=== PATIENT | female | born 1940 | race Two or more races ===

== ENCOUNTER 2024-09-17 10:56 | Inpatient (IN) | payer MEDICARE ==
[~2024-09-17] VITALS: Ht 154.9 cm; Wt 70.3 kg
--- NOTE | 2024-09-17 11:01 | ED.PDOC ---
SOB-HPI HPI Comments This is a 84 year old female BIBA presenting to the ED with chief complaint of SOB. Patient reports that she has been experiencing SOB since this morning along with having some jitters. Patient relays that she has nausea, vomiting, and diarrhea 2 days ago, but it has since resolved. EMS states patient is 100% on 2L of O2 via NC. Patient denies any chest pain, cough, dizziness, nausea, vomiting, diarrhea, headache, fever, or chills. Time Seen by MD: 10:57 Reviewed notes: Nurses Notes, Style Advisor Notes, Medications, Allergies Information Source: Patient, Emergency Med Personnel Mode of Arrival: EMS Severity: Moderate Timing: Hours Duration: Since onset Context: At Rest PE Risk Factors: None History of: None Prehospital treatment: Oxygen Associated Signs and Symptoms: None Past Medical History PAST MEDICAL HISTORY: HTN Surgical History: Denies all surgeries AIRPORT MANAGER History: Denies all AIRPORT MANAGER Hx Family History Family History: Reviewed,noncontributory to illness Social History Smoker: Non-Smoker Alcohol: Denies ETOH Use Drugs: Denies Drug Use Lives In: Home Constitutional: denies: chills, diaphoresis, fatigue, fever, malaise, sweats, weakness, others EENTM: denies: blurred vision, double vision, ear bleeding, ear discharge, ear drainage, ear pain, ear ringing, eye pain, eye redness, hearing loss, mouth pain, mouth swelling, nasal discharge, nose bleeding, nose congestion, nose pain, photophobia, tearing, throat pain, throat swelling, voice changes, others Respiratory: reports: shortness of breath; denies: cough, hemoptysis, orthopnea, SOB at rest, SOB with excertion, stridor, wheezing, others Cardiovascular: denies: chest pain, dizzy spells, diaphoresis, Dyspnea on exertion, edema, irregular heart beat, left arm pain, lightheadedness, palpitations, PND, syncope, others Gastrointestinal: reports: diarrhea, nausea, vomiting; denies: abdomen distended, abdominal pain, blood streaked bowels, constipated, dysphagia, difficulty swallowing, hematemesis, melena, poor appetite, poor fluid intake, rectal bleeding, rectal pain, others Genitourinary: denies: abnormal vagina bleeding, burning, dyspareunia, dysuria, flank pain, frequency, hematuria, incontinence, pain, , vagina discharge, urgency, others Neurological: denies: dizziness, fainting, headache, left sided numbness, left sided weakness, numbness, paresthesia, pre-existing deficit, right sided numbness, right sided weakness, seizure, speech problems, tingling, tremors, weakness, others Musculoskeletal: denies: back pain, gout, joint pain, joint swelling, muscle pain, muscle stiffness, neck pain, others Integumetry: denies: bruises, change in color, change in hair/nails, dryness, laceration, lesions, lumps, rash, wounds, others Allergic/Immunocompromised: denies: Difficulty Healing, Frequent Infections, Hives, Itching, others Hematologic/Lymphatic: denies: anemia, blood clots, easy bleeding, easy bruising, swollen glands, others Endocrine: denies: excessive hunger, excessive sweating, excessive thirst, excessive urination, flushing, intolerance to cold, intolerance to heat, unexplained weight gain, unexplained weight loss, others Psychiatric: denies: anxiety, bipolar disorder, depression, hopeless, panic disorder, schizophrenia, sleepless, suicidal, others All Other Systems: Reviewed and Negative Physical Exam General Appearance: Moderate Distress, Normal HEENT: Normal ENT Inspection, Pharynx Normal, TMs Normal Neck: Full Range of Motion, Non-Tender, Normal, Normal Inspection Respiratory: Chest Non-Tender, No Accessory Muscle Use, Other (Coarse breath sounds) Cardiovascular: No Edema, No JVD, No Murmur, No Gallop, Normal Peripheral Pulses, Regular Rate/Rhythm Breast Exam: Deferred Gastrointestinal: No Organomegaly, Non Tender, No Pulsatile Mass, Normal Bowel Sounds, Soft Genitalia: Deferred Pelvic: Deferred Rectal: Deferred Extremities: No calf tenderness, Normal capillary refill, Normal inspection, Normal range of motion, Non-tender, No pedal edema Musculoskeletal : Apperance: Normal Neurologic: Alert, fretted instrument repairer II-XII nml as Tested, No Motor Deficits, Normal Affect, Normal Mood, No Sensory Deficits Cerebellar Function: NOT DONE Reflexes: NOT DONE Skin: Dry, Normal Color, Warm Peripheral Pulses: 3+ Radial (R), 3+ Radial (L) Lymphatic: No Adenopathy EKG EKG : Pulse Rate (adult): 87 [place]: Normal Cardiac Rhythm: NSR Block: None Hypertrophy: None ST: Normal Was a procedure done? Was a procedure done?: No Differential Dx Differential Diagnosis: Anxiety, Asthma, Bronchitis, CHF, COPD, Pneumonia, Pulmonary Embolism, Respiratory Distress X-Ray, Labs, Meds, VS Vital Signs Date Time Temp Pulse Resp B/P (MAP) Pulse Ox O2 Delivery O2 Flow Rate FiO2 09/17/24 12:00 97.1 82 18 155/61 (92) 96 97.1 09/17/24 12:00 82 18 96 Room Air* 0 21 09/17/24 11:10 87 09/17/24 11:05 98.5 93 18 192/102 (132) 100 98.5 09/17/24 10:59 87 Lab Test 09/17/24 11:46 09/17/24 11:03 Range/Units Urine Color Light-yellow Yellow Urine Clarity Clear Clear Urine pH 7.5 5.0-9.0 Urine Specific [place] 1.012 1.001-1.035 Urine Protein Negative Negative Urine Ketones Negative Negative Urine Blood Negative Negative /uL Urine Nitrite Negative Negative Urine Bilirubin Negative Negative Urine Urobilinogen Normal Negative mg/dL Urine Leukocyte Esterase 2+ Negative /uL Urine RBC 3 0 - 4 /hpf Urine Microscopic WBC 17 H 0-5 /HPF Urine Squamous Epithelial Cells Few <5 /hpf Urine Bacteria None seen None Seen /hpf Urine Glucose Normal Normal mg/dL White Blood Count 7.2 4.4-10.8 10^3/uL Red Blood Count 5.12 4.0-5.20 10^6/uL Hemoglobin 15.9 12.2-16.2 g/dL Hematocrit 46.5 H 36.0-46.0 % Mean Corpuscular Volume 90.8 80.0-100.0 fL Mean Corpuscular Hemoglobin 31.0 28.0-32.0 pg Mean Corpuscular Hemoglobin Concent 34.1 32.0-36.0 g/dL Red Cell Distribution Width 13.3 11.8-14.3 % Platelet Count 203 140-450 10^3/uL Mean Platelet Volume 9.6 6.9-10.8 fL Neutrophils (%) (Auto) 60.7 37.0-80.0 % Lymphocytes (%) (Auto) 27.8 10.0-50.0 % Monocytes (%) (Auto) 8.6 0.0-12.0 % Eosinophils (%) (Auto) 2.0 0.0-7.0 % Basophils (%) (Auto) 0.9 0.0-2.0 % Neutrophils # (Auto) 4.4 1.6-8.6 10 ^3/uL Lymphocytes # (Auto) 2.0 0.4-5.4 10 ^3/uL Monocytes # (Auto) 0.6 0-1.3 10 ^3/uL Eosinophils # (Auto) 0.1 0-0.8 10 ^3/uL Basophils # (Auto) 0.1 0-0.2 10 ^3/uL Nucleated Red Blood Cells 0.2 % Sodium Level 138 136-145 mmol/L Potassium Level 4.2 3.5-5.1 mmol/L Chloride Level 103 98-107 mmol/L Carbon Dioxide Level 24 20-31 mmol/L Anion Gap 11 5-15 Blood Urea Nitrogen 19 9-23 mg/dL Creatinine 1.01 0.550-1.02 mg/dL Glomerular Filtration Rate Calc 55 >90 mL/min BUN/Creatinine Ratio 18.8 10.0-20.0 Serum Glucose 120 H 74-106 mg/dL Calcium Level 10.5 H 8.7-10.4 mg/dL Troponin I High Sensitivity 5 </=34 ng/L Patient alert. Complaining of shortness a breath. Vitals stable. Answering all questions. Urinalysis shows UTI. Establish intravenous access. Was given Rocephin. Was given azithromycin. Blood pressure elevated. Reviewed her history. Explained to the patient. Continue to monitoring. Time of 1ST Reevaluation: 11:57 Reevaluation 1ST: Unchanged Patient Education/Counseling: Diagnosis, Treatment Family Education/Counseling: No Family Present Additional Information Previous visits reviewed: None The following tests were ordered, and results were reviewed by me: Additional Information was gathered from interviewing the following independent historians: I reviewed and agreed with the following test results read by other providers: I discussed treatment and results with medical personnel and: patient Comprehensive systems review obtained and negative except for what is stated in the HPI. SEPSIS Sepsis Screen Physician Orders Chest Portable (09/17/24 11:16) Electrocardigram (09/17/24 11:29) Vital Signs Date Time Temp Pulse Resp B/P (MAP) Pulse Ox O2 Delivery O2 Flow Rate FiO2 09/17/24 12:00 97.1 82 18 155/61 (92) 96 97.1 09/17/24 12:00 82 18 96 Room Air* 0 21 09/17/24 11:10 87 09/17/24 11:05 98.5 93 18 192/102 (132) 100 98.5 09/17/24 10:59 87 Laboratory Tests Test 09/17/24 11:03 White Blood Count 7.2 10^3/uL (4.4-10.8) Departure 1 Departure Time of Disposition: 14:45 Impression: Primary Impression: Acute respiratory distress Additional Impression: Pneumonitis Disposition: ADMITTED INPATIENT Admit to: Med Surg Condition: Guarded Critical Care Note Critical Care Time?: Yes (90 min-critical care time only) Critical care comment: Monitoring oxygenation Stability Stability form required: No Heart Score Heart Score: Heart Score Response (Comments) Value History Slightly Suspicious 0 EKG Normal 0 Age >65 2 Risk Factors >3 or Hx ASHD 2 Troponin Normal limit 0 Total 4 I personally scribed for KARISSA JHAVERI MD ([email or web address]) on 09/17/24 at 11:01. Electronically submitted by Cordell Velasquez ([email or web address]). I personally scribed for KARISSA JHAVERI MD ([email or web address]) on 09/17/24 at 11:10. Electronically submitted by Cordell Velasquez ([email or web address]). KARISSA JHAVERI MD Sep 17, 2024 11:01
--- NOTE | 2024-09-17 11:39 | DVH ---
CHEST RADIOGRAPH Indication: sob Technique: Single frontal view of the chest was obtained COMPARISON: None FINDINGS: Lines and Tubes: Left chest pacemaker Lungs: Clear Pleura: No effusion. No pneumothorax. Cardiomediastinal contours: Unremarkable Bones: Unremarkable IMPRESSION: No acute disease.
[2024-09-17 11:55] LABS: Hematocrit 46.5 % (36.0-46.0); Hemoglobin 15.9 g/dL (12.2-16.2); Mean Corpuscular Hemoglobin 31.0 pg (28.0-32.0); Mean Corpuscular Volume 90.8 fL (80.0-100.0); Nucleated Red Blood Cells % 0.2 %
[2024-09-17 12:00] VITALS: PULSE 82; RESP 18; O2SAT 96
[2024-09-17 12:02] LABS: Anion Gap 11 (5-15); Carbon Dioxide 24 mmol/L (20-31); Chloride 103 mmol/L (98-107); Potassium 4.2 mmol/L (3.5-5.1); Sodium 138 mmol/L (136-145)
[2024-09-17 12:06] LABS: Calcium 10.5 mg/dL (8.7-10.4)
[2024-09-17 12:08] LABS: BUN/Creatinine Ratio 18.8 (10.0-20.0); Blood Urea Nitrogen 19 mg/dL (9-23)
[2024-09-17 12:09] LABS: Glucose 120 mg/dL (74-106)
[2024-09-17 14:05] LABS: Urine Protein, UAD Negative (Negative)
[2024-09-17] MEDS ORDERED: ACETAMINOPHEN 325 MG TAB PO PRN (16:45)
[2024-09-17] MEDS ORDERED: MORPHINE SULFATE INJ 2 MG/ml SYRG IV PRN (16:45)
[2024-09-17] MEDS ORDERED: ONDANSETRON HCL 4 MG/2 ML VIAL IV PRN (16:45)
[2024-09-17] MEDS ORDERED: NITROGLYCERIN 0.4 MG SL TAB SL PRN (16:45)
[2024-09-17 18:25] LABS: INR 0.99 (0.9-1.15); Partial Thromboplastin Time 25.6 SEC (24.5-34.5); Prothrombin Time 10.5 sec (9.3-11.8)
[2024-09-17 18:26] LABS: Alanine Aminotransferase 13.0 U/L (7-40); Albumin 4.6 g/dL (3.2-4.8); Alkaline Phosphatase 78.0 U/L (46-116); Bilirubin, Direct 0.1 mg/dL (<0.3); Bilirubin, Total 0.6 mg/dL (0.2-1.0); Magnesium 2.3 mg/dL (1.6-2.6); Total Protein 7.4 g/dL (5.7-8.2)
--- NOTE | 2024-09-17 18:29 | DVHHPRES ---
History of Present Illness Resident Creating Document: WANDY CORONADO RESIDENT History of Present Illness Janey Avalos is 83 years old female with a PMH of HTN presented to the ED with the chief complaints of shortness of breath since yesterday. Patient reported she has been having on and off shortness of breath since ebary patient also reported she has been having some difficulty with memory since March. Yesterday she was taking rest then she mild felt shortness of breath which last for some time and again came back which prompt her to visit ED. Patient reported no aggravating/relieving factors and also reported no associated fever, chills, flu-like symptoms, chest pain, nausea, vomiting, recent travel, sick contacts and other associated symptoms. Patient is poor historian, unable to obtain complete history, called next of kin but no response, we will call tomorrow again. Patient also reported she has been having lower abdominal pain lately and burning micturation some times. PMH: HTN, Forgetfullness PSH; Unspecified Abdominal surgery Family Hx: Non contributory Social Hx: Lives at home. Former smoker, Denies alcohol and other illicit drug abuse Allergies: None Home meds : Unable to recall Review of Systems Review of Systems Patient seen and examined at the bedside. Patient reported improvement in her symptoms, reported no shortness of breath at this time. Rest of ROS negative Allergies: Coded Allergies: NO KNOWN ALLERGIES (Unverified , 09/17/24) Medications Current Medications Medications Dose Ordered Sig/Joby Route Start Time Stop Time Status Last Admin Dose Admin Sodium Chloride 10 ml Q8HR IV 09/17/24 22:00 UNV Ondansetron HCl 4 mg Q4HP PRN IV 09/17/24 16:45 UNV Acetaminophen 650 mg Q6HP PRN PO 09/17/24 16:45 UNV Nitroglycerin 0.4 mg Q5MINP PRN SL 09/17/24 16:45 UNV Morphine Sulfate 2 mg Q30M PRN IV 09/17/24 16:45 UNV Hydralazine HCl 10 mg Q6HP PRN IV 09/17/24 17:15 UNV Ceftriaxone Sodium 50 ml @ 100 mls/hr DAILY@09 IV 09/18/24 09:00 UNV Exam Vital Signs Vital Signs Date Time Temp Pulse Resp B/P (MAP) Pulse Ox O2 Delivery O2 Flow Rate FiO2 7/25/25 16:00 86 17 151/75 (100) 96 09/17/24 12:00 97.1 97.1 09/17/24 12:00 Room Air* 0 21 Exam Pt is lying on bed General Appearance: Alert, Oriented X3, Cooperative, Not in acute distress HEENT: Atraumatic, Mucous membranes moist/pink Respiratory: Clear to auscultation, Normal air movement, No added sounds Cardiovascular: Regular rate, Normal S1, Normal S2, No murmurs Abdominal: Active bowel sounds, Soft, no distention, LLQ & RLQ tenderness Extremities: No edema, Normal pulses, No tenderness/swelling Skin: No Significant rash, except past surgical scars Neuro: Normal speech, sensorimotor deficits none Psych/Mental Status: Mental status NL, Mood NL Nurse was there as compensation specialist during examination Labs/Xrays Labs Test 09/17/24 17:31 09/17/24 11:46 09/17/24 11:05 09/17/24 11:03 Range/Units Urine Color Light-yellow Yellow Urine Clarity Clear Clear Urine pH 7.5 5.0-9.0 Urine Specific [place] 1.012 1.001-1.035 Urine Protein Negative Negative Urine Ketones Negative Negative Urine Blood Negative Negative /uL Urine Nitrite Negative Negative Urine Bilirubin Negative Negative Urine Urobilinogen Normal Negative mg/dL Urine Leukocyte Esterase 2+ Negative /uL Urine RBC 3 0 - 4 /hpf Urine Microscopic WBC 17 H 0-5 /HPF Urine Squamous Epithelial Cells Few <5 /hpf Urine Bacteria None seen None Seen /hpf Urine Glucose Normal Normal mg/dL Hemoglobin A1c 5.7 <5.7 % A1C White Blood Count 7.2 4.4-10.8 10^3/uL Red Blood Count 5.12 4.0-5.20 10^6/uL Hemoglobin 15.9 12.2-16.2 g/dL Hematocrit 46.5 H 36.0-46.0 % Mean Corpuscular Volume 90.8 80.0-100.0 fL Mean Corpuscular Hemoglobin 31.0 28.0-32.0 pg Mean Corpuscular Hemoglobin Concent 34.1 32.0-36.0 g/dL Red Cell Distribution Width 13.3 11.8-14.3 % Platelet Count 203 140-450 10^3/uL Mean Platelet Volume 9.6 6.9-10.8 fL Neutrophils (%) (Auto) 60.7 37.0-80.0 % Lymphocytes (%) (Auto) 27.8 10.0-50.0 % Monocytes (%) (Auto) 8.6 0.0-12.0 % Eosinophils (%) (Auto) 2.0 0.0-7.0 % Basophils (%) (Auto) 0.9 0.0-2.0 % Neutrophils # (Auto) 4.4 1.6-8.6 10 ^3/uL Lymphocytes # (Auto) 2.0 0.4-5.4 10 ^3/uL Monocytes # (Auto) 0.6 0-1.3 10 ^3/uL Eosinophils # (Auto) 0.1 0-0.8 10 ^3/uL Basophils # (Auto) 0.1 0-0.2 10 ^3/uL Nucleated Red Blood Cells 0.2 % Sodium Level 138 136-145 mmol/L Potassium Level 4.2 3.5-5.1 mmol/L Chloride Level 103 98-107 mmol/L Carbon Dioxide Level 24 20-31 mmol/L Anion Gap 11 5-15 Blood Urea Nitrogen 19 9-23 mg/dL Creatinine 1.01 0.550-1.02 mg/dL Glomerular Filtration Rate Calc 55 >90 mL/min BUN/Creatinine Ratio 18.8 10.0-20.0 Serum Glucose 120 H 74-106 mg/dL Calcium Level 10.5 H 8.7-10.4 mg/dL Troponin I High Sensitivity 5 </=34 ng/L SEPSIS Sepsis Screen Date sepsis recognized/suspect: Sep 10, 2024 Time Sepsis recognized/suspect: 1104 Recent Procedure: No On Antibiotic Therapy: No Respiratory Rate >20: No Heart Rate >90: No Temp<36 C (96.8 F) or >38.3 C: No SBP <90 or MAP <65 mmHG: No New Acute Mental Status Change: No Is the patient on CPAP, BIPAP,: No Physician Orders Chest Portable (09/17/24 11:16) Electrocardigram (09/17/24 11:29) Admit (09/17/24 16:45) Allergies (09/17/24 16:45) Code Status (09/17/24 16:45) Sodium Chloride Lock (Saline Lock Ns) (09/17/24 22:00) Ondansetron Hcl (Zofran) (09/17/24 16:45) Complete Blood Count (09/18/24 04:00) Comprehensive Metabolic Panel (09/18/24 04:00) Cardiac Diet-2gna,Lofat,Lochol (09/17/24 Dinner) Condition: Stable (09/17/24 16:45) Acetaminophen Tablet (Tylenol Tablet) (09/17/24 16:45) Nitroglycerin Sublingual (Ntrostat Subli (09/17/24 16:45) Morphine Sulfate Injection (09/17/24 16:45) Oxygen By Nasal Cannula (09/17/24 16:45) Stat Ekg For Chest Pain (09/17/24 16:45) Notify Md Of Changes From Base (09/17/24 16:45) Head Mva Reactor Operator For 24 Hours (09/17/24 16:45) Emergency Dysrhythmia Protocol (09/17/24 16:45) Rhythm Strips Once Every Shift (09/17/24 16:45) Echo 2d Mode Cardiac Dop (09/17/24 16:52) Urinalysis (09/17/24 16:52) Rapid Influenza A&B (09/17/24 16:52) Hepatic Panel (09/17/24 16:52) Lactic Acid W/ Reflex Order (09/17/24 16:52) Magnesium (09/17/24 16:52) PTPTT (09/17/24 16:52) Covid19 Antigen Sarai (09/17/24 16:52) Urine Bacterial Culture (09/17/24 16:52) Hydralazine Injection (Apresoline Inject (09/17/24 17:15) Thyroid Stimulating Hormone (09/17/24 17:04) Vitamin B12 (09/17/24 17:04) Vitamin D, 25-Hydroxy (09/17/24 17:04) D-Dimer (09/17/24 17:04) Ceftriaxone 1gm/50ml D5w (Rocephin) (09/18/24 09:00) Ceftriaxone 1gm/50ml D5w (Rocephin) (09/17/24 17:15) Vital Signs Date Time Temp Pulse Resp B/P (MAP) Pulse Ox O2 Delivery O2 Flow Rate FiO2 09/17/24 16:00 86 17 151/75 (100) 96 09/17/24 14:00 82 34 196/97 (130) 96 09/17/24 12:00 97.1 82 18 155/61 (92) 96 97.1 09/17/24 12:00 82 18 96 Room Air* 0 21 09/17/24 11:10 87 09/17/24 11:05 98.5 93 18 192/102 (132) 100 98.5 09/17/24 10:59 87 Laboratory Tests Test 09/17/24 11:03 09/17/24 17:31 White Blood Count 7.2 10^3/uL (4.4-10.8) Lactic Acid Level Pending Assessment/Plan Assessment/Plan # SOB rule out flu/COVID # HTN Urgency - Medsurge - Monitor BP - Hydralazine 10 mg prn - measure BNP -ordered rapid flu/COVID test -echocardiogram, pending - Cxr unremarkable # Acute complicated UTI/ cystitis - evident on urinalysis - ordered urine bacterial culture - currently giving Rocephin GI PPX: Not indicated VTE ppx: Lovenox Diet: Cardiac diet Goals of care addressed with the patient for more than 27 minutes: Full code status Case discussed with Dr. Reed ,patient and nurse Plan discussed with: Patient, Other (RN) My Orders Orders - WANDY CORONADO RESIDENT Procedure Category Date Status Time Admit ADMIT 09/17/24 Transmitted 16:45 Allergies PETRA 09/17/24 In Process 16:45 Code Status CODE 09/17/24 Transmitted 16:45 Sodium Chloride Lock PHA 09/17/24 Logged (Saline Lock Ns) 22:00 Ondansetron Hcl PHA 09/17/24 Logged (Zofran) 16:45 Complete Blood Count LAB 09/18/24 Verified 04:00 Comprehensive LAB 09/18/24 Verified Metabolic Panel 04:00 Cardiac DIET 09/17/24 Transmitted Diet-2gna,Lofat,Lochol Dinner Condition: Stable PETRA 09/17/24 In Process 16:45 Acetaminophen Tablet PHA 09/17/24 Logged (Tylenol Tablet) 16:45 Nitroglycerin PHA 09/17/24 Logged Sublingual (Ntrostat 16:45 Morphine Sulfate PHA 09/17/24 Logged Injection 16:45 Oxygen By Nasal RT 09/17/24 Transmitted Cannula 16:45 Stat Ekg For Chest PETRA 09/17/24 In Process Pain 16:45 Notify Md Of Changes PETRA 09/17/24 In Process From Base 16:45 Head Mva Reactor Operator For [facility] 09/17/24 In Process 24 Hours 16:45 Emergency Dysrhythmia PETRA 09/17/24 In Process Protocol 16:45 Rhythm Strips Once PETRA 09/17/24 In Process Every Shift 16:45 Echo 2d Mode Cardiac US 09/17/24 Logged DOP 16:52 Urinalysis LAB 09/17/24 Logged 16:52 Rapid Influenza A&B LAB 09/17/24 Logged 16:52 Hepatic Panel LAB 09/17/24 In Process 16:52 Lactic Acid W/ Reflex LAB 09/17/24 In Process Order 16:52 Magnesium LAB 09/17/24 In Process 16:52 PTPTT LAB 09/17/24 In Process 16:52 Covid19 Antigen Sarai LAB 09/17/24 Logged 16:52 Urine Bacterial DEONNA 09/17/24 Logged Culture 16:52 Hydralazine Injection PHA 09/17/24 Logged (Apresoline Inject 17:15 Thyroid Stimulating LAB 09/17/24 In Process Hormone 17:04 Vitamin B12 LAB 09/17/24 In Process 17:04 Vitamin D, 25-Hydroxy LAB 09/17/24 In Process 17:04 D-Dimer LAB 09/17/24 In Process 17:04 Ceftriaxone 1gm/50ml PHA 09/18/24 Logged D5w (Rocephin) 09:00 Ceftriaxone 1gm/50ml PHA 09/17/24 Logged D5w (Rocephin) 17:15 Date of Service: Sep 17, 2024 Billing Provider: BERNY REED MD Common Visit Codes: [id number] INP/OBS CARE (LOW) Secondary Visit Codes: [id number] CARE PLAN ADDL 30MIN WANDY CORONADO RESIDENT Sep 17, 2024 18:28
[2024-09-17 21:00] VITALS: BP 162/83; PULSE 82; RESP 19; TEMP 97.5; O2SAT 96
[2024-09-17] MEDS: SODIUM CHLOR 0.9% PF (SALINE LOCK) 10ML VIAL/SYR IV SCH (21:32)
[2024-09-17] MEDS: cefTRIAXone 1GM/50ML D5W 50 ML IV ONE (21:32)
[2024-09-17] MEDS: hydrALAZINE HCL 20 MG/ML VL IV PRN (21:37)
[2024-09-18] VITALS (8 sets, daily range): BP systolic 146–163; BP diastolic 56–81; PULSE 84–95; RESP 14–21; TEMP 97.2–98.2; O2SAT 95–98
--- NOTE | 2024-09-18 01:49 | ECG ---
[facility] Test Date: 2024-09-17 Test Time: 10:59:25 Pat Name: ABI ABBOTT Department: ED Room: 0236 Gender: F Regulatory Submissions Specialist: MAVERICK : 1940 Requested By: KARISSA JHAVERI Order Number: [id number] Reading MD: Measurements Intervals [place] Rate: 87 P: 41 MO: 177 QRS: -34 QRSD: 89 T: 11 QT: 350 QTc: 421 Interpretive Statements Sinus rhythm Inferior infarct, old Anteroseptal infarct, old Please click the below link to view image of tracing.
[2024-09-18] MEDS: hydrALAZINE HCL 20 MG/ML VL IV ONE (01:58)
[2024-09-18 07:29] LABS: Hematocrit 43.1 % (36.0-46.0); Hemoglobin 15.1 g/dL (12.2-16.2); Mean Corpuscular Hemoglobin 31.5 pg (28.0-32.0); Mean Corpuscular Volume 89.9 fL (80.0-100.0); Nucleated Red Blood Cells % 0.1 %
[2024-09-18 07:38] LABS: Alanine Aminotransferase 10 U/L (7-40); Alkaline Phosphatase 70 U/L (46-116); Anion Gap 11 (5-15); BUN/Creatinine Ratio 19.0 (10.0-20.0); Blood Urea Nitrogen 19 mg/dL (9-23); Calcium 9.7 mg/dL (8.7-10.4); Carbon Dioxide 23 mmol/L (20-31); Chloride 105 mmol/L (98-107); Potassium 3.6 mmol/L (3.5-5.1); Sodium 139 mmol/L (136-145); Total Protein 6.7 g/dL (5.7-8.2)
[2024-09-18 07:39] LABS: Albumin 4.1 g/dL (3.2-4.8); Bilirubin, Total 0.5 mg/dL (0.2-1.0); Glucose 143 mg/dL (74-106)
[2024-09-18] MEDS: cefTRIAXone 1GM/50ML D5W 50 ML IV SCH (09:02)
[2024-09-18 11:39] LABS: COVID19 ANTIGEN SOFIA FIA NEGATIVE (NEGATIVE)
--- NOTE | 2024-09-18 15:09 | DVHPNRES ---
Progress Note Date Seen: Sep 18, 2024 Resident Creating Document: WANDY CORONADO RESIDENT Medical Necessity Reason Pt with a Central, PICC or Fol: No Subjective Review of Systems Patient seen and examined at the bedside. Patient reported improvement in her symptoms, reported no shortness of breath at this time. Rest of ROS negative Patient reports: No new complaints, Feels better Objective vital signs Vital Sign Date Time Temp Pulse Resp B/P (MAP) Pulse Ox O2 Delivery O2 Flow Rate FiO2 09/18/24 13:00 97.9 90 18 149/56 (87) 97 97.9 09/18/24 07:40 Nasal Cannula* 1 24 Total Intake and Output 09/17/24 09/17/24 09/18/24 15:00 23:00 07:00 Intake Total 170 ml Balance 170 ml medications Current Medications Medications Dose Ordered Sig/Joby Route Start Time Stop Time Status Last Admin Dose Admin Sodium Chloride 10 ml Q8HR IV 09/17/24 22:00 09/18/24 05:55 10 ML Ondansetron HCl 4 mg Q4HP PRN IV 09/17/24 16:45 Acetaminophen 650 mg Q6HP PRN PO 09/17/24 16:45 Nitroglycerin 0.4 mg Q5MINP PRN SL 09/17/24 16:45 Morphine Sulfate 2 mg Q30M PRN IV 09/17/24 16:45 Hydralazine HCl 10 mg Q6HP PRN IV 09/17/24 17:15 09/17/24 21:37 10 MG Ceftriaxone Sodium 50 ml @ 100 mls/hr DAILY@09 IV 09/18/24 09:00 09/18/24 09:02 100 MLS/HR Examination Pt is lying on bed General Appearance: Alert, Oriented X3, Cooperative, Not in acute distress HEENT: Atraumatic, Mucous membranes moist/pink Respiratory: Clear to auscultation, Normal air movement, No added sounds Cardiovascular: Regular rate, Normal S1, Normal S2, No murmurs Abdominal: Active bowel sounds, Soft, no distention, LLQ & RLQ tenderness Extremities: No edema, Normal pulses, No tenderness/swelling Skin: No Significant rash, except past surgical scars Neuro: Normal speech, sensorimotor deficits none Psych/Mental Status: Mental status NL, Mood NL Nurse was there as mba intern during examination laboratory and microbiology Laboratory Tests 09/18/24 06:01 Test 09/18/24 06:01 Range/Units Serum Glucose 143 H 74-106 mg/dL Microbiology Date/Time Source Procedure Growth Status 09/17/24 11:46 Voided Urine Urine Culture - Preliminary Resulted Labs and/or images reviewed: Labs reviewed by me, Image(s) reviewed by me Problem List/Assessment/Plan Problem List/Assessment/Plan # SOB likely from uncontrolled HTN # ruled out flu/COVID # HTN Urgency - Medsurge - Monitor BP - Hydralazine 10 mg prn - measure BNP -ordered rapid flu/COVID test, negative -echocardiogram, pending - Cxr unremarkable -added amlodipine 10 mg and lisinopril 10 mg # Acute complicated UTI/ cystitis - evident on urinalysis - ordered urine bacterial culture - currently giving Rocephin GI PPX: Not indicated VTE ppx: Lovenox Diet: Cardiac diet Goals of care addressed with the patient for more than 27 minutes: Full code status Case discussed with Dr. Gardner ,patient and nurse Plan discussed with: Patient, Other (rn) My Orders My Orders Orders - WANDY CORONADO RESIDENT Procedure Category Date Status Time Admit ADMIT 09/17/24 Transmitted 16:45 Allergies PETRA 09/17/24 In Process 16:45 Code Status CODE 09/17/24 Transmitted 16:45 Sodium Chloride Lock PHA 09/17/24 In Process (Saline Lock Ns) 22:00 Ondansetron Hcl PHA 09/17/24 In Process (Zofran) 16:45 Cardiac DIET 09/17/24 Transmitted Diet-2gna,Lofat,Lochol Dinner Condition: Stable PETRA 09/17/24 In Process 16:45 Acetaminophen Tablet PHA 09/17/24 In Process (Tylenol Tablet) 16:45 Nitroglycerin PHA 09/17/24 In Process Sublingual (Ntrostat 16:45 Morphine Sulfate PHA 09/17/24 In Process Injection 16:45 Oxygen By Nasal RT 09/17/24 Transmitted Cannula 16:45 Stat Ekg For Chest PETRA 09/17/24 In Process Pain 16:45 Notify Md Of Changes PETRA 09/17/24 In Process From Base 16:45 Ramp Boss For [facility] 09/17/24 In Process 24 Hours 16:45 Emergency Dysrhythmia [facility] 09/17/24 In Process Protocol 16:45 Rhythm Strips Once [facility] 09/17/24 In Process Every Shift 16:45 Urine Bacterial DEONNA 09/17/24 In Process Culture 16:52 Hydralazine Injection PHA 09/17/24 In Process (Apresoline Inject 17:15 Vitamin B12 LAB 09/17/24 In Process 17:04 Ceftriaxone 1gm/50ml PHA 09/18/24 In Process D5w (Rocephin) 09:00 Date of Service: Sep 18, 2024 Billing Provider: YUKI GARDNER MD Common Visit Codes: [id number] INP/OBS CARE(HIGH) WANDY CORONADO RESIDENT Sep 18, 2024 15:09 YUKI GARDNER MD Sep 19, 2024 07:30
[2024-09-19 01:00] VITALS: BP 144/77; PULSE 86; RESP 14; TEMP 98.9; O2SAT 96
[2024-09-19 05:00] VITALS: BP 126/67; PULSE 78; RESP 18; TEMP 97.4; O2SAT 97
[2024-09-19 08:00] VITALS: PULSE 75; RESP 16; O2SAT 97
[2024-09-19 08:39] VITALS: BP 142/69; PULSE 75; RESP 16; TEMP 97.8; O2SAT 97
[2024-09-19] MEDS: LISINOPRIL 5 MG TAB PO SCH (09:07)
[2024-09-19 11:07] VITALS: BP 142/69; PULSE 75; RESP 16; TEMP 97.8; O2SAT 97
[2024-09-19] MEDS ORDERED: CEPH250C PO (11:18)
--- NOTE | 2024-09-19 14:04 | DVHDSRES ---
Discharge Summary Date of Admission Resident Creating Document: EMMANUEL JESUS RESIDENT Sep 17, 2024 at 16:45 Date of Discharge: Sep 19, 2024 Admitting Diagnosis SOB likely from uncontrolled HTN Labs/Diagnostic Data: Laboratory Results Test 09/18/24 11:00 09/18/24 06:01 09/18/24 03:48 09/17/24 17:31 Influenza Type A Antigen Negative (Negative) Influenza Type B Antigen Negative (Negative) SARS-CoV-2 Antigen (Rapid) Negative (NEGATIVE) White Blood Count 8.8 10^3/uL (4.4-10.8) Red Blood Count 4.79 10^6/uL (4.0-5.20) Hemoglobin 15.1 g/dL (12.2-16.2) Hematocrit 43.1 % (36.0-46.0) Mean Corpuscular Volume 89.9 fL (80.0-100.0) Mean Corpuscular Hemoglobin 31.5 pg (28.0-32.0) Mean Corpuscular Hemoglobin Concent 35.0 g/dL (32.0-36.0) Red Cell Distribution Width 13.5 % (11.8-14.3) Platelet Count 205 10^3/uL (140-450) Mean Platelet Volume 9.7 fL (6.9-10.8) Neutrophils (%) (Auto) 79.2 % (37.0-80.0) Lymphocytes (%) (Auto) 11.7 % (10.0-50.0) Monocytes (%) (Auto) 8.0 % (0.0-12.0) Eosinophils (%) (Auto) 0.5 % (0.0-7.0) Basophils (%) (Auto) 0.6 % (0.0-2.0) Neutrophils # (Auto) 6.9 10 ^3/uL (1.6-8.6) Lymphocytes # (Auto) 1.0 10 ^3/uL (0.4-5.4) Monocytes # (Auto) 0.7 10 ^3/uL (0-1.3) Eosinophils # (Auto) 0 10 ^3/uL (0-0.8) Basophils # (Auto) 0 10 ^3/uL (0-0.2) Nucleated Red Blood Cells 0.1 % Sodium Level 139 mmol/L (136-145) Potassium Level 3.6 mmol/L (3.5-5.1) Chloride Level 105 mmol/L (98-107) Carbon Dioxide Level 23 mmol/L (20-31) Anion Gap 11 (5-15) Blood Urea Nitrogen 19 mg/dL (9-23) Creatinine 1.00 mg/dL (0.550-1.02) Glomerular Filtration Rate Calc 55 mL/min (>90) BUN/Creatinine Ratio 19.0 (10.0-20.0) Serum Glucose 143 mg/dL (74-106) Calcium Level 9.7 mg/dL (8.7-10.4) Total Bilirubin 0.5 mg/dL (0.2-1.0) Aspartate Amino Transferase (AST) 18 U/L (13-40) Alanine Aminotransferase (ALT) 10 U/L (7-40) Alkaline Phosphatase 70 U/L (46-116) B-Type Natriuretic Peptide 29.72 pg/mL (0-100) Total Protein 6.7 g/dL (5.7-8.2) Albumin 4.1 g/dL (3.2-4.8) POC Glucose 163 mg/dl (70-106) Prothrombin Time 10.5 sec (9.3-11.8) Prothrombin Time INR 0.99 (0.9-1.15) Activated Partial Thromboplast Time 25.6 SEC (24.5-34.5) D-Dimer, Quantitative 1.93 mg/L FEU (0.0-0.49) Lactic Acid Level 1.2 mmol/L (0.4-2.0) Magnesium Level 2.3 mg/dL (1.6-2.6) Direct Bilirubin 0.1 mg/dL (<0.3) Vitamin D 25-Hydroxy 53.0 ng/mL (30.0-100) Thyroid Stimulating Hormone (TSH) 2.37 uIU/mL (0.55-4.78) Test 09/17/24 11:46 09/17/24 11:05 09/17/24 11:03 Urine Color Light-yellow (Yellow) Urine Clarity Clear (Clear) Urine pH 7.5 (5.0-9.0) Urine Specific [place] 1.012 (1.001-1.035) Urine Protein Negative (Negative) Urine Ketones Negative (Negative) Urine Blood Negative /uL (Negative) Urine Nitrite Negative (Negative) Urine Bilirubin Negative (Negative) Urine Urobilinogen Normal mg/dL (Negative) Urine Leukocyte Esterase 2+ /uL (Negative) Urine RBC 3 /hpf (0 - 4) Urine Microscopic WBC 17 /HPF (0-5) Urine Squamous Epithelial Cells Few /hpf (<5) Urine Bacteria None seen /hpf (None Seen) Urine Glucose Normal mg/dL (Normal) Hemoglobin A1c 5.7 % A1C (<5.7) Troponin I High Sensitivity 5 ng/L (</=34) Other Laboratory Tests 09/18/24 06:01 Brief Hx & Hospital Course: Janey Avalos is 83 years old female with a PMH of HTN presented to the ED with the chief complaints of shortness of breath since yesterday. Patient reported she has been having on and off shortness of breath since March patient also reported she has been having some difficulty with memory since March. Yesterday she was taking rest then she mild felt shortness of breath which last for some time and again came back which prompt her to visit ED. Patient reported no aggravating/relieving factors and also reported no associated fever, chills, flu-like symptoms, chest pain, nausea, vomiting, recent travel, sick contacts and other associated symptoms. Patient is poor historian, unable to obtain complete history, called next of kin but no response, we will call tomorrow again. Patient also reported she has been having lower abdominal pain lately and burning micturation some times. Brief history of Hospitalization: Patient came in with shortness of breaths most likely due to uncontrolled hypertension. We ruled out COVID And flu. She had hypertensive urgency and was [facility]. We monitored her BP and give her hydralazine 10 mg PRN. her BNP was normal and an echocardiogram was done. We added amlodipine 10 mg and lisinopril 10 mg. Chest x-ray was unremarkable. For patient's acute complicated UTI / cystitis which was evident on her urinalysis we ordered a urine bacterial culture and started her on Rocephin. Patient is now stable for discharge. We have counseled her regarding low-salt diet and to monitor blood pressure at home as well. We have counseled alert continue home medications and are discharging her on Cephalexin 500 mg for 7 days. Pt is lying on bed General Appearance: Alert, Oriented X3, Cooperative, Not in acute distress HEENT: Atraumatic, Mucous membranes moist/pink Respiratory: Clear to auscultation, Normal air movement, No added sounds Cardiovascular: Regular rate, Normal S1, Normal S2, No murmurs Abdominal: Active bowel sounds, Soft, no distention, LLQ & RLQ tenderness Extremities: No edema, Normal pulses, No tenderness/swelling Skin: No Significant rash, except past surgical scars Neuro: Normal speech, sensorimotor deficits none Psych/Mental Status: Mental status NL, Mood NL Nurse was there as station gateman during examination Operations or Procedures CHEST RADIOGRAPH IMPRESSION: No acute disease. Condition at Discharge: Stable Final Diagnosis/Problems List # SOB likely from uncontrolled HTN # ruled out flu/COVID # HTN Urgency # Acute complicated UTI/ cystitis Discharge Disposition: Home Discharge Instruct/Medications Diet: Consistent carbohydrate, Cardiac 2g Na,low cholest Activity: No Restrictions, As Tolerated Follow Up/Referral: folloup with pcp within 2 weeks followup in [facility] clinic within a week Medications: as per emr Scheduled Amlodipine Besylate (Amlodipine Besylate), 1 TAB PO DAILY Cephalexin (Keflex Capsule), 2 CAP PO BID Lisinopril (Lisinopril), 10 MG PO DAILY Discharge Statement: "Patient was advised to return to the ER or call 911 if any headaches, dizziness, shortness of breath, chest pain, abdominal pain, bleeding, fevers, or worsening of medical condition. Patient was counseled about treatment plan, medications, possible side effects, patientverbalized understanding. All questions were answered to the best of my ability. This discharge took greater then 30 minutes in planning, reviewing documentation, counseling the patient, and discussing with other team members." ASSESSMENT ASSESSMENT Assessment SOB likely from uncontrolled HTN Acute Complicated Cystitis/UTI Date of Service: Sep 19, 2024 Billing Provider: YUKI MACIAS MD Common Visit Codes: 49595-VAH/OBS DISCH DAY >30min EMMANUEL JESUS Sep 19, 2024 14:04 YUKI MACIAS MD Sep 20, 2024 11:13
--- NOTE | 2024-09-19 15:38 | DVHSR ---
APPROVED REPORT EXAM: Two-dimensional and M-mode echocardiogram with Doppler and color Doppler. Blood Pressure: 154/76 mmHg INDICATION SOB Surgery/Intervention Pacemaker: RISK [employer]CTORS Height: 5'1", Weight: 177 DIMENSIONS LVDd3.9 (3.8-5.7cm)LA (2D)3.2 (1.9-4.0cm)Aortic Root3.1 (2.0-3.7cm) LVDs2.5 (2.5-4.0cm)LA (MM) (1.9-4.0cm)Aortic Cusp Exc1.3 (1.5-2.0cm) EF (%) 60.0 (55-70%)Rt. Atrium3.0 (1.9-4.0cm)Asc. Aorta cm IVSd1.2 (0.7-1.1cm)RV (D) (1.8-2.4cm) PWd1.3 (0.7-1.1cm) Mitral Valve MitralMitral Stenosis E wave0.71m/sMV Mean GR.mmHg A wave1.06m/sMV Peak GR.mmHg E/A ratio0.72D MVAcm2 DECEL [id number] 1/2 [place] Aortic Valve Aortic ValveAortic Stenosis V11.21m/Pattie Mean GR.3mmHg V21.15m/Pattie Peak GR.5mmHg LVOT Diameter1.8 (1.8-2.4cm)Doppler AVA2.68cm2 Pulmonic Valve V20.96m/s Tricuspid Valve TR Velocity2.72m/s [id number] Other Information Technically limited study due to body habitus, patient very sensitive to touch. Conclusion Sinus rhythm. Normal chamber sizes. Valves are normal. EF of 60% with normal RV function. Dopplers unremarkable. No pericardial effusion masses or vegetations.
[2024-09-19] MEDS ORDERED: AMLO1TAB23 PO (15:40)
[2024-09-19] MEDS ORDERED: LISI-275 PO (15:40)
== END 2024-09-19 12:52 | disposition home or self-care (01) | DRG 305 ==
LOC: EDBD 10:56 → ER 11:02 → OVERFLOW 16:45 → EAST 18:25
PROVIDERS: ATTEND Emergency Medicine
DX: I16.0 Hypertensive urgency (principal); N30.00 Acute cystitis without hematuria; Z20.822 Contact with and (suspected) exposure to COVID-19; J98.4 Other disorders of lung; Z79.899 Other long term (current) drug therapy
CPT/HCPCS: 36415; 71045; 80048; 80053; 80076; 81001; 82306; 82607; 82962; 83036; 83605; 83735; 83880; 84443; 84484; 85025; 85379; 85610; 85730; 87086; 87426; 87804; 93005; 93306; 96365; 96375; 99291; 99292; G0378